=== PATIENT | female | born 1975 ===

== ENCOUNTER 2017-05-17 15:40 | Outpatient (CLI) | payer OTHER ==
[~2017-05-17] VITALS: Ht 162.6 cm; Wt 61.1 kg
[2017-05-17 15:04] VITALS: BP 120/56; PULSE 70; RESP 16; Ht 162.6 cm; Wt 61.1 kg
--- NOTE | 2017-05-17 16:19 | PN ---
Date/Time of Note Date/Time of Note DATE: 05/17/17 TIME: 16:04 Assessment/Plan Assessment/Plan Assessment/Plan [facility] Progress Note Date of Service: 05/17/2017 Today's Impression & Plan: Overall doing well without any major postoperative complications or surgical site infections post lap appy for acute perforated appendicitis, s/p lap appy at [facility] on 05/03/17. Her slight discomfort above the umbilicus is likely suture related and no evidence for hernia or infection. Suspect that it should get better in a few weeks. Explained to patient and answered all questions to the best of my ability. Patient appeared to understand and agreed with the plans. With above assessment, I've recommended the followin. f/u with PCP 2. f/u with us prn; call me if umbilical discomfort does not improve Thank you very much for allowing us to participate in the care of this very nice patient and wonderful family. If there are any questions, please feel free to contact me at . Nature presenting problem: Moderate risk Complexity decision making: Moderate complexity Please note: Spelling or grammatical errors in this note are likely due to EHR/ dictation systems and are not reflective of patient care quality. Occasional wrong-word or sound-alike substitutions may have occurred due to the inherent limitations of voice recognition software. Please read the chart carefully and recognize, using context, where the substitutions have occurred. The chart may also contain mistakes due to difficulties with voice recognition software. Also please note that the dictation timestamp of this note does not necessarily reflected time of the visit for this service. Updated clinical summary: Very pleasant otherwise healthy 42-year-old lady presenting with signs and symptoms consistent with acute appendicitis, status post laparoscopic appendectomy at [facility] on 05/03/2017 for gangrenous appendicitis. Comorbidities: 1. Recent dental surgery 2. Acute appendicitis, status post laparoscopic appendectomy at [facility] on 05/03/2017 for gangrenous appendicitis. Subjective: No major events or complaints overnight. No major pain complaints and reportedly under control with medications. No N/V, SOB or CP. + bowel activity Objective: Vitals: reviewed; please also see EHR Physical Exam: Lungs: breathing comfortably without tachypnea; no audible wheezes, rales or rhonchi on gross exam Abd: Soft, non-tender, and non-distended; no peritoneal signs or guarding; incision dressings c/d/i w/o any obvious e/e/d/h Skin: Appears pink and feels warm to touch Neuro: Awake, alert and follows commands appropriately Exam/Review of Systems Vital Signs Vitals Vital Signs Date Time Temp Pulse Resp B/P Pulse Ox O2 Delivery O2 Flow Rate FiO2 05/17/17 15:04 98.4 70 16 120/56 96 Room Air BRENDA HICKS M.D. May 17, 2017 16:17
== END 2017-05-17 16:49 | disposition home or self-care (01) ==
LOC: HPC 15:40
PROVIDERS: ATTEND Transplant Surgery
DX: K35.80 Unspecified acute appendicitis (principal)
CPT/HCPCS: G0463